=== PATIENT | male | born 1945 | race Caucasian/White ===

== ENCOUNTER 2019-06-24 12:41 | Emergency (ER) | payer BC ==
[~2019-06-24] VITALS: Ht 177.8 cm; Wt 136.1 kg
[~2019-06-24 12:41] MED LIST: ASPI325; ATOR40TA; DOCU100; FURO40; GLIP5; LISI20; METF500; METO100; NIFE60ER PO; OMEGA; PARO30; POTA8; VALS80; [UNRECOGNIZED DRUG - OTHER]
[2019-06-24 12:50] LABS: Calcium, Ionized (POC) 1.14 mmol/L (1.10-1.46); Chloride (POC) 105 mmol/L (98-108); Creatinine (POC) 2.4 mg/dL (0.8-1.3); Glucose (ISTAT POC) 169 mg/dL (70-99); Hemoglobin (POC) 12.2 g/dL (13.5-17.5); Potassium (POC) 5.3 mmol/L (3.5-5.5); Sodium (POC) 142 mmol/L (135-148); Total CO2 (POC) 29 mmol/L (21-32)
--- NOTE | 2019-06-24 13:08 | NUR ---
Patient is intubated and receiving CPR when I enter ED room 26. Ronit and other family memebers are present. After about ten minutes or so ED calls time of . I spend time with Ronit and other family members. I hug them, listen to their story and provide prayer for patient and family. Ronit then thanks me for coming and tells me, "We got it from here." I will continue to remain available to family.
== END 2019-06-24 12:53 ==
LOC: ER 12:41
PROVIDERS: Emergency Medicine
DX: I46.9 Cardiac arrest, cause unspecified (principal); I12.9 Hypertensive chronic kidney disease with stage 1 through stage 4 chronic kidney disease, or unspecified chronic kidney disease; E11.22 Type 2 diabetes mellitus with diabetic chronic kidney disease; N18.9 Chronic kidney disease, unspecified; Z79.84 Long term (current) use of oral hypoglycemic drugs; Z79.899 Other long term (current) drug therapy; Z79.82 Long term (current) use of aspirin
CPT/HCPCS: 31720; 36415; 80047; 85014; 92950; 96374-59; 96375-59; 99285-25